=== PATIENT | female | born 1995 | race Caucasian/White ===

== ENCOUNTER 2020-03-17 04:36 | Emergency (ER) | payer SELFPAY ==
[2020-03-17] MEDS ORDERED: IBUPROFEN 800 MG TABLET PO ONE (05:22)
--- NOTE | 2020-03-17 05:27 | ER Document Report ---
ED General - General Chief Complaint: Wrist Pain Stated Complaint: HANDCUFFS STUCK Notes: Patient is a 24-year-old white female with no reported past medical history presents to the emergency department the chief complaint of having metal handcuffs stuck on her wrists, the right is tightly adherent to the wrist and she complains of pain in that wrist. She states that her friends and her were drinking and when she fell asleep they were playing a joke and put handcuffs on her. After she woke up she states they all laughed about it but then her friends could not find the handcuff keys. She states that her friend broke the chains in the middle and then tried desperately to release the locking mechanism with different means and he could not. She states subsequently the right Shackle was locked down very tightly on the wrist. She denies any numbness or tingling of the distal hand on the right. Denies any cold or discoloration sensation of the right hand. - Related Data Allergies/Adverse Reactions: ampicillin Allergy (Verified 03/17/20 05:04) cefdinir [From Omnicef] Allergy (Verified 03/17/20 05:04) Past Medical History - Social History Smoking Status: Never Smoker Chew tobacco use (# tins/day): No Frequency of alcohol use: Occasional Drug Abuse: None Family History: Reviewed & Not Pertinent Patient has homicidal ideation: No Review of Systems - Review of Systems Musculoskeletal: Other - Pain -: Yes All other systems reviewed and negative Physical Exam - Vital signs Vitals: Temp Pulse Resp BP Pulse Ox 98.5 F 136 H 16 148/102 H 100 03/17/20 04:48 03/17/20 04:48 03/17/20 04:48 03/17/20 04:48 03/17/20 04:48 - General General appearance: Appears well, Alert In distress: Mild - Respiratory Respiratory status: No respiratory distress Chest status: Nontender Breath sounds: Normal Chest palpation: Normal - Cardiovascular Rhythm: Regular Heart sounds: Normal auscultation Murmur: No - Extremities Wrist: Other - 2+ radials bilaterally. Mental shackle handcuffs individually locked around each wrist. The right hand cuff is cinched tightly to the wrist however there is a 2+ radial distal to it and good capillary refill in the right hand. Patient has normal sensation and full range of motion of the right hand. - Neurological Neuro grossly intact: Yes Cognition: Normal Orientation: AAOx4 - Psychological Associated symptoms: Normal affect, Normal mood - Skin Skin Temperature: Warm Skin Moisture: Dry Skin Color: Normal Course - Re-evaluation Re-evalutation: 03/17/20 05:25 Handcuffs were successfully unlocked by nurse Mast by reversing the locking mechanism internally with a Maynor pin. Patient immediately side and relief. Ice was placed on the wrist and should be given Motrin. She is otherwise stable and appropriate for discharge and outpatient follow-up. She will follow-up with her regular doctor as needed. Counseled her to return here any ER immediately with any new, persistent or worsening symptoms. She verbalized understood and agreed. - Vital Signs Vital signs: Temp Pulse Resp BP Pulse Ox 98.5 F 136 H 16 148/102 H 100 03/17/20 05:02 03/17/20 04:48 03/17/20 04:48 03/17/20 04:48 03/17/20 04:48 Discharge - Discharge Clinical Impression: Foreign body of wrist Qualifiers: Encounter type: initial encounter Laterality: unspecified laterality Qualified Code(s): S60.859A - Superficial foreign body of unspecified wrist, initial encounter Condition: Stable Disposition: HOME, SELF-CARE Instructions: Ice Packs ([facility]) Additional Instructions: Follow-up with your regular doctor in 2 to 3 days for reevaluation. Return here or any ER immediately with any new, persistent or worsening symptoms.
[2020-03-17 05:48] VITALS: BP 100/60
== END 2020-03-17 05:40 | disposition home or self-care (01) ==
LOC: ER 04:36
DX: S60.85 Superficial foreign body of wrist (principal); M25.531 Pain in right wrist; X58.XXXA Exposure to other specified factors, initial encounter; Z88.8 Allergy status to other drugs, medicaments and biological substances
CPT/HCPCS: 99283

== ENCOUNTER 2020-08-29 00:50 | Emergency (ER) | payer OTHER ==
[2020-08-29] MEDS ORDERED: ONDANSETRON HCL INJ/PF 4 MG/2 ML SDV IV ONE (01:13)
[2020-08-29] MEDS ORDERED: ACETAMINOPHEN 325 MG TABLET PO ONE (01:13)
--- NOTE | 2020-08-29 01:18 | ER Document Report ---
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 Patient states that she was drinking alcohol and she was walking and tripped and fell back and hit head and was unconscious for 5 minutes. Patient now complains of headache and left head. Patient denies bleeding diatheses, anticoagulation, vomiting, memory loss, neck pain, back pain, injury elsewhere. - Related Data Allergies/Adverse Reactions: ampicillin Allergy (Verified 03/17/20 05:04) cefdinir [From Omnicef] Allergy (Verified 03/17/20 05:04) Past Medical History - General Information source: Patient - Social History Chew tobacco use (# tins/day): No Frequency of alcohol use: Social Drug Abuse: None Review of Systems - Review of Systems Notes: No abdominal pain, no chest pain Physical Exam - Vital signs Vitals: Temp Pulse Resp BP Pulse Ox 97.9 F 95 16 127/84 H 99 08/29/20 01:00 08/29/20 01:00 08/29/20 01:00 08/29/20 01:00 08/29/20 01:00 - Notes Notes: Awake alert and oriented young adult with bloody scalp in no acute distress moving all extremities spontaneously with GCS 15. Course - Re-evaluation Re-evalutation: 08/29/20 01:17 I have greeted and performed a rapid initial assessment of this patient. A comprehensive ED assessment and evaluation of the patient, analysis of test results and completion of medical decision making process will be conducted by additional ED providers. - Vital Signs Vital signs: Temp Pulse Resp BP Pulse Ox 97.9 F 95 16 127/84 H 99 08/29/20 01:00 08/29/20 01:00 08/29/20 01:00 08/29/20 01:00 08/29/20 01:00
--- NOTE | 2020-08-29 01:36 | ER Document Report ---
ED Wound - General Chief Complaint: Laceration Stated Complaint: ETOH,FELL/HEAD PAIN Time Seen by Provider: 08/29/20 01:21 Notes: Patient is a 25 year old female that comes emergency department for chief complaint of alcohol intoxication and head injury with laceration to the top of her scalp. She states that she was avoiding driving home because she was intoxicated, she states that she was walking home with her friend when she tripped on the curb, fell backwards, and hit the back of her head at the top. She states she thinks she got knocked out from it. She denies vomiting, focal numbness or weakness, or any other areas of pain. She denies any other areas of bleeding. Tetanus reportedly up-to-date. 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 - Related Data Allergies/Adverse Reactions: ampicillin Allergy (Verified 03/17/20 05:04) cefdinir [From Omnicef] Allergy (Verified 03/17/20 05:04) Past Medical History - General Information source: Patient - Social History Smoking Status: Never Smoker Chew tobacco use (# tins/day): No Frequency of alcohol use: Social Drug Abuse: None Lives with: Spouse/Significant other Family History: Reviewed & Not Pertinent Patient has homicidal ideation: No Surgical Hx: Negative - Immunizations Immunizations up to date: Yes Hx Diphtheria, Pertussis, Tetanus Vaccination: Yes Review of Systems - Review of Systems Constitutional: See HPI EENT: No symptoms reported Cardiovascular: No symptoms reported Respiratory: No symptoms reported Gastrointestinal: No symptoms reported Genitourinary: No symptoms reported Female Genitourinary: No symptoms reported Musculoskeletal: See HPI Skin: See HPI Hematologic/Lymphatic: No symptoms reported Neurological/Psychological: See HPI Physical Exam - Vital signs Vitals: Temp Pulse Resp BP Pulse Ox 97.9 F 95 16 127/84 H 99 08/29/20 01:00 08/29/20 01:00 08/29/20 01:00 08/29/20 01:00 08/29/20 01:00 - Notes Notes: GENERAL: Patient is alert, oriented, however she is unsteady on her feet, she has slurred speech, she smells of alcohol. She is somewhat disheveled in appearance as well. HEAD: Large amount of blood over the posterior scalp, there is a stellate wound just above the top of the occipital area in the midline. This is partial- thickness. No other signs of trauma noted over the head. EYES: Pupils equal, round, and reactive to light. Extraocular movements intact. ENT: Oral mucosa moist, tongue midline. Oropharynx unremarkable. Airway patent. Nares patent, sinuses non-tender, ear canals unremarkable, TM's intact. NECK: Full range of motion. Supple. Trachea midline. No lymphadenopathy. LUNGS: Clear to auscultation bilaterally, no wheezes, rales, or rhonchi. No respiratory distress. Non-tender chest wall. No signs of trauma. HEART: Regular rate and rhythm. No murmur ABDOMEN: Soft, non-tender. Non-distended. EXTREMITIES: Moves all 4 extremities spontaneously. No edema, normal radial and dorsalis pedis pulses bilaterally. No cyanosis. No signs of trauma. BACK: no cervical, thoracic, lumbar midline tenderness. No saddle anesthesia, normal distal neurovascular exam. Moves all extremities in full range of motion. No signs of trauma. NEUROLOGICAL: Alert and oriented x3. Slurred speech. Cranial nerves II through XII grossly intact. Strength 5/5 in all extremities. PSYCH: Normal affect, normal mood. SKIN: Warm, dry, normal turgor. No rashes or lesions noted. Course - Re-evaluation Re-evalutation: Patient initially obviously intoxicated but this significantly improved with IV fluids. I did review laboratory work-up from triage including CBC, chemistry, test, and alcohol level. Alcohol level is significantly elevated but work-up otherwise unremarkable. CT of the head and neck reviewed with no acute findings. The wound over the head was very irregular and this was closed with 3 sutures after thorough cleansing. Discussed head injury cautions, postconcussive syndrome, avoidance of alcohol intoxication and risks, return precautions. Discussed wound care. Patient and boyfriend at bedside state appreciation and agreement. Stable and well-appearing at time of discharge, sober boyfriend will drive. - Vital Signs Vital signs: Temp Pulse Resp BP Pulse Ox 97.6 F 84 16 107/70 99 08/29/20 05:08 08/29/20 05:08 08/29/20 05:08 08/29/20 05:08 08/29/20 05:08 - Laboratory Result Diagrams: 08/29/20 02:55 08/29/20 02:55 Laboratory results interpreted by me: 08/29/20 08/29/20 02:55 02:55 Eos % (Auto) 7.9 H Sodium 147.8 H Chloride 109 H Total Protein 8.3 H Albumin 5.1 H Procedures - Laceration/Wound Repair posterior scalp Wound length (cm): 1.5 Wound's Depth, Shape: Stellate Laceration pre-procedure: Sterile PPE donned, Sterile drapes applied, Shur-Clens applied Anesthetic type: 1% Lidocaine w/epi Volume Anesthetic (mLs): 4 Wound explored: Clean, No foreign body removed Wound Repaired With: Sutures Suture Size/Type: 4:0, Prolene Number of Sutures: 3 Layer Closure?: No Post-procedure NV exam normal: Yes Complications: No Discharge - Discharge Clinical Impression: Scalp laceration Qualifiers: Encounter type: initial encounter Qualified Code(s): S01.01XA - Laceration without foreign body of scalp, initial encounter Head injury Qualifiers: Encounter type: initial encounter Qualified Code(s): S09.90XA - Unspecified injury of head, initial encounter Alcohol intoxication Qualifiers: Complication of substance-induced condition: uncomplicated Qualified Code(s): F10.920 - Alcohol use, unspecified with intoxication, uncomplicated Condition: Stable Disposition: HOME, SELF-CARE Additional Instructions: The wound was repaired with sutures. Keep clean, clean gently with soap and water, dab dry, avoid soaking or scrubbing the area directly. You can apply thin film of topical antibiotic. Sutures need to be removed in 5-7 days at a medical facility. It is very likely that you will have a concussion, symptoms including dizziness, trouble focusing, headaches, vague nausea are common. This should simply resolve with time. See also head injury precautions listed below. Return to the emergency department for any concerning symptoms or signs of developing infection over the area of the wound. Head Injury Precautions At this point, there is no evidence that your head injury is serious. Observation is necessary, however. Limit activity for the first 24 hours. During the first 24 hours, check to see approximately every two to three hours that the patient is easily arousable, responds normally, and can perform common tasks such as walking without difficulty. Contact your doctor or go to the hospital if any of the following things occur: Persistent vomiting, difficulty in arousing the patient, worsening or continued headache, or failure to improve as expected. Head injuries can cause symptoms that persist for a few days or even a few weeks. Forms: Return to Work
[2020-08-29] MEDS ORDERED: NORMAL SALINE 1000 ML 1,000 ML IV ONE (02:42)
--- NOTE | 2020-08-29 02:54 | RADIOLOGY REPORT (SQ) ---
EXAM DESCRIPTION: CT HEAD WITHOUT IV CONTRAST COMPLETED DATE/TME: 08/29/2020 02:34 CLINICAL HISTORY: intox trauma COMPARISON: None available TECHNIQUE: Axial CT of the head obtained from the skull apex to the skull base without contrast. FINDINGS: No acute intracranial hemorrhage identified. No mass, mass effect, shift of the midline, abnormal extra-axial fluid collection or CT evidence of acute ischemic change identified. The ventricular system is unremarkable. No acute abnormalities of the supratentorial white matter, basal ganglia, cerebellum, or brainstem. The visualized paranasal sinuses and the mastoid air cells are relatively well aerated. No skull fracture identified. Visualized orbits and globes are unremarkable. IMPRESSION: 1. No acute intracranial abnormality identified. This exam was performed according to our departmental dose-optimization program, which includes automated exposure control, adjustment of the mA and/or kV according to patient size and/or use of iterative reconstruction technique.
--- NOTE | 2020-08-29 02:58 | RADIOLOGY REPORT (SQ) ---
EXAM DESCRIPTION: CT CERVICAL SPINE WITHOUT IV CONTRAST COMPLETED DATE/TME: 08/29/2020 02:34 CLINICAL HISTORY: intox trauma COMPARISON: None available TECHNIQUE: Axial CT of the cervical spine obtained without contrast. FINDINGS: Alignment of the cervical spine is maintained without evidence of subluxation. The atlantoaxial, atlantodental, and occipitoatlantal intervals are preserved. No fracture identified. Vertebral body height preserved. Prevertebral soft tissues are unremarkable. Intervertebral disc height preserved. Visualized skull base is intact. No fracture of the visualized facial bones. Visualized mastoid air cells and paranasal sinuses are well aerated. Visualized thyroid is unremarkable. No cervical lymphadenopathy. No pneumothorax in the visualized lung apices. IMPRESSION: 1. No acute fracture or subluxation of the cervical spine. This exam was performed according to our departmental dose-optimization program, which includes automated exposure control, adjustment of the mA and/or kV according to patient size and/or use of iterative reconstruction technique.
[2020-08-29 03:08] LABS: ABSOLUTE BASOPHILS # (AUTO) 0.1 10^3/uL (0.0-0.2); ABSOLUTE EOSINOPHILS # (AUTO) 0.5 10^3/uL (0.0-0.6); ABSOLUTE LYMPHOCYTES (AUTO) 1.7 10^3/uL (0.5-4.7); ABSOLUTE MONOCYTES (AUTO) 0.2 10^3/uL (0.1-1.4); ABSOLUTE NEUT (AUTO) 3.6 10^3/uL (1.7-8.2); BASOPHILS % (AUTO) 1.4 % (0-2); EOSINOPHILS % (AUTO) 7.9 % (0-6); HEMATOCRIT 41.6 % (36.0-47.0); HEMOGLOBIN 14.3 g/dL (12.0-15.5); MEAN CORPUSCULAR HEMOGLOBIN 32.7 pg (27.0-33.4); MEAN CORPUSCULAR HGB CONC 34.3 g/dL (32.0-36.0); MEAN CORPUSCULAR VOLUME 95 fl (80-97); MONOCYTES % (AUTO) 3.7 % (3-13); PLATELET COUNT 269 10^3/uL (150-450); RED BLOOD COUNT 4.37 10^6/uL (3.72-5.28); RED CELL DISTRIBUTION WIDTH 12.2 % (11.5-14.0); TOTAL CELLS COUNTED % (AUTO) 100 %; WHITE BLOOD COUNT 6.2 10^3/uL (4.0-10.5)
[2020-08-29 03:27] LABS: ALBUMIN 5.1 g/dL (3.5-5.0); ALCOHOL 244 mg/dL (NONE DETECTED); ALKALINE PHOSPHATASE 68 U/L (38-126); ANION GAP 13 (5-19); ASPARTATE AMINO TRANSFERASE 28 U/L (14-36); BILIRUBIN,DIRECT 0.1 mg/dL (0.0-0.4); BILIRUBIN,TOTAL 0.3 mg/dL (0.2-1.3); BLOOD UREA NITROGEN 11 mg/dL (7-20); CALCIUM 9.4 mg/dL (8.4-10.2); CARBON DIOXIDE 26 mmol/L (22-30); CHLORIDE 109 mmol/L (98-107); GLUCOSE 102 mg/dL (75-110); POTASSIUM 4.2 mmol/L (3.6-5.0); TOTAL PROTEIN 8.3 g/dL (6.3-8.2)
[2020-08-29] MEDS ORDERED: LIDOCAINE 1%/EPINEPHRINE INJ 20 ML VIAL INJ ONE (04:09)
[2020-08-29 05:10] VITALS: BP 107/70
== END 2020-08-29 05:08 | disposition home or self-care (01) ==
LOC: ER 00:50
DX: S01.01XA Laceration without foreign body of scalp, initial encounter (principal); R51.9 Headache, unspecified; W10.1XXA Fall (on)(from) sidewalk curb, initial encounter; Y93.01 Activity, walking, marching and hiking; F10.120 Alcohol abuse with intoxication, uncomplicated; Z88.0 Allergy status to penicillin; Z88.1 Allergy status to other antibiotic agents
CPT/HCPCS: 99285; 96360; 36415; 80307; 84703; 85025; 80053; 70450; 72125; 12001; J3490; J7030